=== PATIENT | male | born 1955 | race Caucasian/White ===

== ENCOUNTER 2020-01-06 16:29 | Inpatient (IN) | payer MEDICAID ==
[~2020-01-06] VITALS: Ht 180.3 cm; Wt 123.8 kg
[~2020-01-06 16:29] MED LIST: LIDOcaine 2% (20 mg/ml) 5ml cardiac syringe ONE; MAGNESIUM SULFATE 4 MEQ/ML (5gm/10ml) injection ONE; NORepinephrine 1 mg/ml inj IV ONE; albumin (human) 25% 100 ML IV solution IV ONE; aminocaproic acid 250 MG/1 ML inj. ONE; calcium chloride 100 MG/1 ML inj IV ONE; heparin 10,000 units/1 ML INJ ONE; methylPREDNISolone sod. succ. 500mg inj ONE; papaverine 30 mg/ml 2ml inj. ONE; sodium bicarbonate (8.4%) 1 mEq/ml syringe ONE
[2020-01-06 17:03] LABS: BASOPHILS % (AUTO) 0.1 % (0-1); EOSINOPHILS # (AUTO) 0.1 X10'3 (0-0.9); EOSINOPHILS % (AUTO) 0.8 % (0-6); HEMATOCRIT 41.2 % (42.0-52.0); HEMOGLOBIN 14.4 g/dl (14.0-17.9); LYMPHOCYTES # (AUTO) 1.3 X10'3 (1.1-4.8); LYMPHOCYTES % (AUTO) 11.5 % (21-51); MEAN CORPUSCULAR HEMOGLOBIN 30.8 PG (27.0-31.0); MEAN CORPUSCULAR HGB CONC 35.1 g/dL (33.0-36.5); MEAN CORPUSCULAR VOLUME 87.8 FL (78-98); MEAN PLATELET VOLUME 7.9 FL (7.4-10.4); MONOCYTES # (AUTO) 0.6 X10'3 (0-0.9); MONOCYTES % (AUTO) 5.5 % (2-12); NEUTROPHILS # (AUTO) 9.1 X10'3 (1.8-7.7); NEUTROPHILS % (AUTO) 82.1 % (42-75); PLATELET COUNT 267 X10'3 (140-440); RED BLOOD COUNT 4.69 X10'6 (4.70-6.10); RED CELL DISTRIBUTION WIDTH 13.5 % (11.5-14.5); WHITE BLOOD COUNT 11.1 X10'3 (4.5-11.0)
[2020-01-06 17:10] LABS: ALANINE AMINOTRANSFERASE 50 U/L (12-78); ALBUMIN 3.7 G/DL (3.4-5.0); ALKALINE PHOSPHATASE 94 IU/L (46-116); ANION GAP 13 (8-16); ASPARTATE AMINO TRANSFERASE 28 U/L (10-37); BILIRUBIN,TOTAL 0.3 MG/DL (0.1-1.0); BLOOD UREA NITROGEN 19 MG/DL (7-18); BUN/CREATININE RATIO 14.2 (5.4-32.0); CALCIUM 9.4 MG/DL (8.5-10.1); CHLORIDE 101 MMOL/L (99-107); CREATININE 1.34 MG/DL (0.60-1.10); GLUCOSE 352 MG/DL (70-104); POTASSIUM 4.3 MMOL/L (3.5-5.1); SODIUM 135 MMOL/L (135-145); TOTAL CARBON DIOXIDE 21.2 MMOL/L (24-32); TOTAL PROTEIN 7.3 G/DL (6.4-8.2); eGFR 54 ML/MIN
--- NOTE | 2020-01-06 17:23 | NUR ---
breaking primary RN, pt is in supine in bed, in no apparent distrss, watching staff walk by, VSS
[2020-01-06] MEDS ORDERED: heparin 10,000 units/1 ML INJ IV PRN ×2 (17:25→17:35)
[2020-01-06] MEDS ORDERED: heparin 10,000 units/1 ML INJ IV ONE ×3 (17:25→17:35)
[2020-01-06] MEDS ORDERED: normal saline 1000ML IV soln IVB ONE (17:30)
[2020-01-06] MEDS ORDERED: iohexol 350MG/ML 100ml bottle IV ONE (17:31)
[2020-01-06] MEDS ORDERED: ondansetron/PF 4mg/2ml inj IV PRN (17:35)
[2020-01-06] MEDS ORDERED: morphine 2 MG/ML inj. syringe IV PRN ×2 (17:35)
[2020-01-06] MEDS ORDERED: heparin 25,000 UNIT/250ml bag 250 ML IV SCH (17:35)
[2020-01-06] MEDS ORDERED: magnesium hydroxide 30ml (MOM) UD suspension PO PRN (17:35)
[2020-01-06] MEDS ORDERED: HYDROcodone/acetaminophen 10/325mg tab PO PRN (17:35)
[2020-01-06] MEDS ORDERED: mag hydrox/Alum hydrox/simeth 30ml oral suspension PO PRN (17:35)
[2020-01-06] MEDS ORDERED: acetaminophen 325mg tablet PO PRN ×2 (17:35)
[2020-01-06] MEDS ORDERED: HYDROcodone/acetaminophen 5mg/325mg tablet PO PRN (17:35)
[2020-01-06] MEDS: heparin 25,000 UNIT/250ml bag 250 ML IV SCH ×2 (17:48→23:50)
[2020-01-06] MEDS ORDERED: MULT-1085 PO (17:51)
[2020-01-06] MEDS ORDERED: METF-438 PO (17:51)
[2020-01-06] MEDS ORDERED: HYDR12.55 PO (17:51)
[2020-01-06] MEDS ORDERED: LISI-600 PO (17:51)
[2020-01-06 17:53] LABS: PARTIAL THROMBOPLASTIN TIME 28 SECONDS (22-32)
[2020-01-06 18:10] LABS: HEMOGLOBIN A1C 9.7 % (4.5-6.2)
[2020-01-06] MEDS: MESSAGE TO NURSING PO NR (18:30)
[2020-01-06] MEDS: metoprolol tartrate 25mg tablet PO SCH (18:59)
--- NOTE | 2020-01-06 19:00 | NUR ---
Patient in room PCU 3014. I have received report from "Cap" RN by telephone from ER and had the opportunity to ask questions and assume patient care. Patient came up shortly to unit with all belongings and stable, Lopressor was given before coming up for an SBP of 206.
--- NOTE | 2020-01-06 20:08 | NUR ---
PAGER ID: [phone] MESSAGE: [id number] Magdaleno Estevez: Critical Troponin 1.1, already on Heparin Drip, would you like anything else? Lia SAUL [id number]
--- NOTE | 2020-01-06 20:20 | NUR ---
PAGER ID: [phone] MESSAGE: [id number] Magdaleno Estevez: Is a diabetic and not on protocol, can I add it? Thanks. Lia SAUL [id number]
[2020-01-06 21:00] VITALS: BP 154/89
--- NOTE | 2020-01-06 23:27 | NUR ---
PAGER ID: [phone] MESSAGE: [id number] Magdaleno Estevez: Critical Troponin 4.40, would you like to order anything? Lia SAUL [id number]
--- NOTE | 2020-01-06 23:30 | NUR ---
New orders for Trop 4.4 MD Murray was called and gave no new orders and said to call MD Fonseca to see if he suggests anything different. MD Fonseca was contacted and gave orders to continue troponin Q8HR until peak and to order a Echocardiogram for AM. Patient is asymptomatic, no chest pain, no nausea/vomiting. Will continue to monitor patient.
--- NOTE | 2020-01-07 01:53 | NUR ---
PAGER ID: [phone] MESSAGE: [id number] Magdaleno Estevez: BP 165/93, no chest pain, there are no prn for high blood pressure. would you like to order anything? Lia SAUL [id number]
[2020-01-07 02:00] VITALS: BP 165/93
[2020-01-07] MEDS ORDERED: cloNIDine 0.1 mg tablet PO PRN (02:25)
[2020-01-07 05:58] LABS: BASOPHILS % (AUTO) 0.2 % (0-1); EOSINOPHILS # (AUTO) 0.2 X10'3 (0-0.9); EOSINOPHILS % (AUTO) 1.9 % (0-6); HEMATOCRIT 40.3 % (42.0-52.0); LYMPHOCYTES # (AUTO) 2.4 X10'3 (1.1-4.8); LYMPHOCYTES % (AUTO) 23.7 % (21-51); MEAN CORPUSCULAR HEMOGLOBIN 30.5 PG (27.0-31.0); MEAN CORPUSCULAR HGB CONC 34.7 g/dL (33.0-36.5); MEAN CORPUSCULAR VOLUME 87.9 FL (78-98); MEAN PLATELET VOLUME 7.9 FL (7.4-10.4); MONOCYTES # (AUTO) 0.8 X10'3 (0-0.9); MONOCYTES % (AUTO) 8.4 % (2-12); NEUTROPHILS # (AUTO) 6.6 X10'3 (1.8-7.7); NEUTROPHILS % (AUTO) 65.8 % (42-75); PLATELET COUNT 258 X10'3 (140-440); RED BLOOD COUNT 4.59 X10'6 (4.70-6.10); RED CELL DISTRIBUTION WIDTH 13.3 % (11.5-14.5)
[2020-01-07 06:09] LABS: ALBUMIN 3.5 G/DL (3.4-5.0); ANION GAP 8 (8-16); BLOOD UREA NITROGEN 15 MG/DL (7-18); BUN/CREATININE RATIO 14.3 (5.4-32.0); CALCIUM 9.2 MG/DL (8.5-10.1); CHLORIDE 104 MMOL/L (99-107); CHOL/HDL RATIO 4.6 (0.00-4.99); CHOLESTEROL 162 MG/DL (0-200); CREATININE 1.05 MG/DL (0.60-1.10); GLUCOSE 222 MG/DL (70-104); HDL CHOLESTEROL 35 MG/DL (35-60); LDL CHOLESTEROL 99 MG/DL (50-100); SODIUM 138 MMOL/L (135-145); TOTAL CARBON DIOXIDE 25.6 MMOL/L (24-32); TRIGLYCERIDES 165 MG/DL (20-135); eGFR 71 ML/MIN
--- NOTE | 2020-01-07 06:15 | NUR ---
Patient in room PCU 3014. I have received report from Lia SAUL and had the opportunity to ask questions and assume patient care. Patient awake on report and in no distress.
--- NOTE | 2020-01-07 06:22 | NUR ---
PAGER ID: [phone] MESSAGE: [id number] Magdaleno Estevez: Critical Trop of 8.15. orders? Lia SAUL [phone]
--- NOTE | 2020-01-07 06:25 | NUR ---
Critical value call back MD Murray responded with no new orders since patient is asymptomatic but to keep patient NPO this AM for possible cath lab procedure. Will pass on to day shift RN.
--- NOTE | 2020-01-07 06:25 | NUR ---
Patient in room PCU 3014. I have received report from DORYS Fitzgerald and had the opportunity to ask questions and assume patient care. Pt sitting up in bed, awake for bedside report.
[2020-01-07] MEDS ORDERED: tirofiban 5mg in NS 100mL 100 ML IV SCH (06:30)
--- NOTE | 2020-01-07 06:51 | NUR ---
Problems reprioritized. Patient report given, questions answered & plan of care reviewed with Monica SAUL.
[2020-01-07 07:00] VITALS: BP 155/88
[2020-01-07] MEDS ORDERED: dextrose 50%-water 50ml dispensing syringe IV PRN ×2 (08:20)
[2020-01-07] MEDS: atorvastatin 20mg tablet PO SCH (08:20)
[2020-01-07] MEDS ORDERED: dextrose ORAL solution 15 GM/59 ML bottle PO PRN ×2 (08:20)
[2020-01-07] MEDS ORDERED: glucagon, human recombinant 1mg kit SUBCUT PRN (08:20)
[2020-01-07] MEDS: aspirin 81mg tablet.DR PO SCH (08:20)
[2020-01-07] MEDS: metoprolol tartrate 25mg tablet PO SCH ×2 (08:21→19:30)
[2020-01-07] MEDS: MESSAGE TO NURSING PO NR (10:00)
[2020-01-07 11:00] VITALS: BP 149/85
[2020-01-07] MEDS: multivitamins, therapeutics tablet PO SCH (11:14)
[2020-01-07] MEDS: lisinopril 20mg tablet PO SCH (11:15)
[2020-01-07] MEDS: insulin Lispro (HumaLOG) vial - multi-dose SQ SCH ×2 (13:02→19:38)
--- NOTE | 2020-01-07 14:03 | NUR ---
DM consult: Pt with T2DM, current A1c is 9.7%. Attempted visit with pt at bedside however pt sleeping and did not wake with verbal cues. Written DM education and RD contact information left at bedside. Will remain available. Addendum: 01/07/20 at [address] Amended: Links added.
[2020-01-07] MEDS: heparin 25,000 UNIT/250ml bag 250 ML IV SCH ×2 (14:25→15:05)
[2020-01-07 15:00] VITALS: BP 129/76
[2020-01-07 18:00] VITALS: BP 112/65
--- NOTE | 2020-01-07 18:19 | NUR ---
Problems reprioritized. Patient report given, questions answered & plan of care reviewed with Anil SAUL. Patient resting in bed and in no distress.
--- NOTE | 2020-01-07 18:26 | NUR ---
Problems reprioritized. Patient report given, questions answered & plan of care reviewed with DORYS Ma.
[2020-01-07] MEDS: insulin glargine (Lantus) pen - multi-dose SQ SCH (21:44)
[2020-01-07 22:00] VITALS: BP 125/65
[2020-01-08] VITALS (14 sets, daily range): BP systolic 122–141; BP diastolic 63–80
[2020-01-08 03:53] LABS: BASOPHILS % (AUTO) 0.4 % (0-1); EOSINOPHILS # (AUTO) 0.2 X10'3 (0-0.9); EOSINOPHILS % (AUTO) 2.4 % (0-6); HEMATOCRIT 42.1 % (42.0-52.0); HEMOGLOBIN 14.5 g/dl (14.0-17.9); LYMPHOCYTES # (AUTO) 2.5 X10'3 (1.1-4.8); LYMPHOCYTES % (AUTO) 27.8 % (21-51); MEAN CORPUSCULAR HEMOGLOBIN 30.4 PG (27.0-31.0); MEAN CORPUSCULAR HGB CONC 34.3 g/dL (33.0-36.5); MEAN CORPUSCULAR VOLUME 88.6 FL (78-98); MONOCYTES # (AUTO) 0.8 X10'3 (0-0.9); MONOCYTES % (AUTO) 9.4 % (2-12); NEUTROPHILS # (AUTO) 5.4 X10'3 (1.8-7.7); PLATELET COUNT 266 X10'3 (140-440); RED BLOOD COUNT 4.76 X10'6 (4.70-6.10); RED CELL DISTRIBUTION WIDTH 13.6 % (11.5-14.5)
[2020-01-08 04:05] LABS: ALBUMIN 3.6 G/DL (3.4-5.0); ANION GAP 11 (8-16); BLOOD UREA NITROGEN 18 MG/DL (7-18); BUN/CREATININE RATIO 17.3 (5.4-32.0); CALCIUM 9.4 MG/DL (8.5-10.1); CHLORIDE 103 MMOL/L (99-107); CREATININE 1.04 MG/DL (0.60-1.10); GLUCOSE 144 MG/DL (70-104); POTASSIUM 3.5 MMOL/L (3.5-5.1); SODIUM 137 MMOL/L (135-145); TOTAL CARBON DIOXIDE 23.2 MMOL/L (24-32); eGFR 72 ML/MIN
--- NOTE | 2020-01-08 06:15 | NUR ---
Patient in room PCU 3014. I have received report from DORYS Ma and had the opportunity to ask questions and assume patient care. Patient asleep on report and in no apparent distress.
--- NOTE | 2020-01-08 06:23 | NUR ---
Patient in room PCU 3014. I have received report from DORYS Ma and had the opportunity to ask questions and assume patient care. Pt sleeping comfortably, RN informed that he has been prepped for Heart Cath scheduled for 01/07 @0730. Heparin gtt running at 1400.
[2020-01-08] MEDS ORDERED: LIDOcaine 1% (10mg/ml)w/preservative injection 20ml MDV ONE (06:51)
[2020-01-08] MEDS ORDERED: fentaNYL/PF 50MCG/1 ML 2ML syringe ONE (06:51)
[2020-01-08] MEDS ORDERED: midazolam 2 mg/2 ml injection ONE (06:51)
[2020-01-08] MEDS ORDERED: iohexol 350MG/ML 100ml bottle IV ONE ×2 (06:52→07:39)
[2020-01-08] MEDS ORDERED: nitroGLYCERIN-Tridil 50MG/D5W 250 ML IV ONE (07:17)
[2020-01-08] MEDS ORDERED: verapamil 2.5 mg/ml inj IV ONE (07:17)
[2020-01-08] MEDS ORDERED: heparin 1,000unit/ml 10ml vial 10 ML ONE (07:17)
[2020-01-08] MEDS ORDERED: iohexol 350 MG/ML 50ML vial IV ONE (07:40)
[2020-01-08] MEDS ORDERED: potassium Cl 2 mEq/ml inj IV ONE (08:00)
[2020-01-08] MEDS: metoprolol tartrate 25mg tablet PO SCH ×2 (08:57→19:07)
[2020-01-08] MEDS: multivitamins, therapeutics tablet PO SCH (08:57)
[2020-01-08] MEDS: aspirin 81mg tablet.DR PO SCH (08:57)
[2020-01-08] MEDS: atorvastatin 20mg tablet PO SCH (08:58)
[2020-01-08] MEDS: lisinopril 20mg tablet PO SCH (08:58)
[2020-01-08] MEDS: insulin Lispro (HumaLOG) vial - multi-dose SQ SCH ×3 (09:05→19:12)
[2020-01-08] MEDS ORDERED: MESSAGE TO NURSING PO ONE ×4 (09:25)
[2020-01-08] MEDS: MESSAGE TO NURSING PO NR (10:00)
--- NOTE | 2020-01-08 18:30 | NUR ---
Problems reprioritized. Patient report given, questions answered & plan of care reviewed with Monica SAUL. Addendum: 01/09/20 at 0214 by Stephen Salter RN Saad for 01/07 1800 - Patient in room [place] [address]. *I have received report from Monica SAUL and had the opportunity to ask questions and assume patient care.*
--- NOTE | 2020-01-08 18:34 | NUR ---
Problems reprioritized. Patient report given, questions answered & plan of care reviewed with Almas RN. Patient resting comftorably in bed at change of shift.
--- NOTE | 2020-01-08 18:36 | NUR ---
Problems reprioritized. Patient report given, questions answered & plan of care reviewed with DORYS Coburn. Pt sitting up in bed, watching tv. All pt needs met at this time.
--- NOTE | 2020-01-08 18:36 | NUR ---
[place] Medication Administration: For this medication-pass time frame, all medication were reviewed, dispensed, administered and documented per hospital policy by DORYS Hernandez.
--- NOTE | 2020-01-08 18:36 | NUR ---
[place] documentation: I have reviewed and agree with all interventions, assessments performed and documented by DORYS Hernandez.
[2020-01-08] MEDS: insulin glargine (Lantus) pen - multi-dose SQ SCH (21:22)
[2020-01-09 05:28] LABS: BASOPHILS % (AUTO) 0.4 % (0-1); EOSINOPHILS # (AUTO) 0.2 X10'3 (0-0.9); EOSINOPHILS % (AUTO) 2.7 % (0-6); HEMATOCRIT 38.2 % (42.0-52.0); HEMOGLOBIN 13.3 g/dl (14.0-17.9); LYMPHOCYTES # (AUTO) 2.7 X10'3 (1.1-4.8); LYMPHOCYTES % (AUTO) 28.3 % (21-51); MEAN CORPUSCULAR HGB CONC 34.9 g/dL (33.0-36.5); MEAN CORPUSCULAR VOLUME 88.7 FL (78-98); MEAN PLATELET VOLUME 7.7 FL (7.4-10.4); MONOCYTES % (AUTO) 10.2 % (2-12); NEUTROPHILS # (AUTO) 5.5 X10'3 (1.8-7.7); NEUTROPHILS % (AUTO) 58.4 % (42-75); PLATELET COUNT 257 X10'3 (140-440); RED CELL DISTRIBUTION WIDTH 13.8 % (11.5-14.5); WHITE BLOOD COUNT 9.4 X10'3 (4.5-11.0)
[2020-01-09 05:52] LABS: ALBUMIN 3.5 G/DL (3.4-5.0); ANION GAP 8 (8-16); BLOOD UREA NITROGEN 22 MG/DL (7-18); BUN/CREATININE RATIO 15.6 (5.4-32.0); CALCIUM 8.9 MG/DL (8.5-10.1); CHLORIDE 102 MMOL/L (99-107); CHOL/HDL RATIO 3.8 (0.00-4.99); CHOLESTEROL 123 MG/DL (0-200); CREATININE 1.41 MG/DL (0.60-1.10); GLUCOSE 120 MG/DL (70-104); HDL CHOLESTEROL 32 MG/DL (35-60); LDL CHOLESTEROL 68 MG/DL (50-100); POTASSIUM 3.4 MMOL/L (3.5-5.1); SODIUM 137 MMOL/L (135-145); TOTAL CARBON DIOXIDE 26.8 MMOL/L (24-32); TRIGLYCERIDES 128 MG/DL (20-135); eGFR 51 ML/MIN
--- NOTE | 2020-01-09 06:00 | NUR ---
Patient in room PCU 3014. I have received report from Almas SAUL and had the opportunity to ask questions and assume patient care.
--- NOTE | 2020-01-09 06:26 | NUR ---
Problems reprioritized. Patient report given, questions answered & plan of care reviewed with Day RN
[2020-01-09 07:02] VITALS: BP 113/75
[2020-01-09] MEDS: atorvastatin 20mg tablet PO SCH (07:46)
[2020-01-09] MEDS: aspirin 81mg tablet.DR PO SCH (07:46)
[2020-01-09] MEDS: multivitamins, therapeutics tablet PO SCH (07:46)
[2020-01-09] MEDS: lisinopril 20mg tablet PO SCH (07:46)
[2020-01-09] MEDS: metoprolol tartrate 25mg tablet PO SCH ×2 (07:46→20:00)
[2020-01-09] MEDS: insulin Lispro (HumaLOG) vial - multi-dose SQ SCH ×3 (09:25→21:26)
[2020-01-09] MEDS: nitroGLYCERIN 0.4mg SUBLingual tab SL PRN (10:38)
[2020-01-09 11:00] VITALS: BP 120/62
--- NOTE | 2020-01-09 13:49 | NUR ---
Paged Dr. Muhammad Re: Magdaleno Estevez RM [id number]. Pt K is 3.4, May be have replacement orders? Thank you Monica [id number].
--- NOTE | 2020-01-09 13:53 | NUR ---
Patient in room PCU 3014. I have received report from Karen SAUL and had the opportunity to ask questions and assume patient care.
--- NOTE | 2020-01-09 14:02 | NUR ---
Problems reprioritized. Patient report given, questions answered & plan of care reviewed with Monica Valiente RN.
[2020-01-09 15:00] VITALS: BP 140/81
--- NOTE | 2020-01-09 18:10 | NUR ---
Problems reprioritized. Patient report given, questions answered & plan of care reviewed with Almas RN.
[2020-01-09] MEDS ORDERED: potassium Cl 20 mEq SR tablet PO PRN ×2 (18:50)
[2020-01-09] MEDS ORDERED: potassium CL 10mEq/100ml bag 100 ML IV PRN (18:50)
[2020-01-09 19:00] VITALS: BP 107/68
[2020-01-09] MEDS: insulin glargine (Lantus) pen - multi-dose SQ SCH (21:25)
[2020-01-09 23:00] VITALS: BP 137/75
[2020-01-10 03:00] VITALS: BP 132/72
--- NOTE | 2020-01-10 05:26 | NUR ---
Patient in room U 3014B. I have received report from Monica SAUL and had the opportunity to ask questions and assume patient care.
[2020-01-10 06:00] VITALS: BP 135/77
--- NOTE | 2020-01-10 06:29 | NUR ---
Problems reprioritized. Patient report given, questions answered & plan of care reviewed with Day RN.
[2020-01-10 06:32] LABS: BASOPHILS % (AUTO) 0.3 % (0-1); EOSINOPHILS # (AUTO) 0.2 X10'3 (0-0.9); EOSINOPHILS % (AUTO) 1.9 % (0-6); HEMATOCRIT 38.3 % (42.0-52.0); HEMOGLOBIN 13.5 g/dl (14.0-17.9); LYMPHOCYTES # (AUTO) 2.1 X10'3 (1.1-4.8); LYMPHOCYTES % (AUTO) 24.7 % (21-51); MEAN CORPUSCULAR HGB CONC 35.2 g/dL (33.0-36.5); MEAN CORPUSCULAR VOLUME 88.2 FL (78-98); MONOCYTES # (AUTO) 0.8 X10'3 (0-0.9); MONOCYTES % (AUTO) 9.5 % (2-12); NEUTROPHILS # (AUTO) 5.3 X10'3 (1.8-7.7); NEUTROPHILS % (AUTO) 63.6 % (42-75); PLATELET COUNT 267 X10'3 (140-440); RED BLOOD COUNT 4.34 X10'6 (4.70-6.10); RED CELL DISTRIBUTION WIDTH 13.5 % (11.5-14.5); WHITE BLOOD COUNT 8.3 X10'3 (4.5-11.0)
[2020-01-10 06:37] LABS: ALBUMIN 3.4 G/DL (3.4-5.0); ANION GAP 8 (8-16); BLOOD UREA NITROGEN 18 MG/DL (7-18); BUN/CREATININE RATIO 17.1 (5.4-32.0); CHLORIDE 104 MMOL/L (99-107); CREATININE 1.05 MG/DL (0.60-1.10); GLUCOSE 171 MG/DL (70-104); POTASSIUM 4.1 MMOL/L (3.5-5.1); SODIUM 137 MMOL/L (135-145); TOTAL CARBON DIOXIDE 24.6 MMOL/L (24-32); eGFR 71 ML/MIN
[2020-01-10] MEDS: atorvastatin 20mg tablet PO SCH (08:58)
[2020-01-10] MEDS: aspirin 81mg tablet.DR PO SCH (08:58)
[2020-01-10] MEDS: multivitamins, therapeutics tablet PO SCH (08:58)
[2020-01-10] MEDS: metoprolol tartrate 25mg tablet PO SCH ×2 (09:00→20:17)
[2020-01-10] MEDS: lisinopril 20mg tablet PO SCH (09:00)
[2020-01-10] MEDS: insulin Lispro (HumaLOG) vial - multi-dose SQ SCH ×3 (09:44→19:15)
[2020-01-10 11:30] VITALS: BP 144/86
--- NOTE | 2020-01-10 12:00 | NUR ---
Initial: Pt presented with c/o CP and admit with acute NSTEMI. Pt s/p cardiac cath with severe multivessel CAD with preserved LVEF per MD notes, pending CABG. Pt on heart healthy CHO controlled diet documented with 75-100% PO intake meeting nutrient needs for IBW. LBM 01/06, d/w dietary to send power pudding with next meal to assist with bowel regularity. Pt would benefit from s/p cardiac nutrition therapy education once stable following CABG procedure. Will monitor need for additional DM education at that time. Recommendations: 1) Continue heart healthy CHO controlled diet 2) Monitor need for additional protein for satiety 3) Routine bowel care 4) Scaled weights per rx 5) S/p cardiac surgery nutrition therapy education once stable following CABG; monitor need for additional DM education Addendum: 01/10/20 at [address] Amended: Links added.
[2020-01-10 15:00] VITALS: BP 133/73
--- NOTE | 2020-01-10 15:51 | NUR ---
respiratory paged: 310: MARILEE - PFTs/ABGs needed. Surgery Sunday
[2020-01-10 18:00] VITALS: BP 133/72
--- NOTE | 2020-01-10 18:00 | NUR ---
Patient in room MED 310. I have received report from JUANITA SAUL and had the opportunity to ask questions and assume patient care.
[2020-01-10] MEDS: insulin glargine (Lantus) pen - multi-dose SQ SCH (21:02)
[2020-01-10 22:00] VITALS: BP_SYST 119; BP_SYST 133; BP_DIAS 72; BP_DIAS 85
[2020-01-10 22:15] LABS: CLARITY,URINE CLEAR (Clear); COLOR,URINE YELLOW (Yellow); GLUCOSE, URINE NEGATIVE (Neg); KETONES,URINE NEGATIVE (Neg); LEUKOCYTE ESTERASE ,URINE NEGATIVE (Neg); NITRITES, URINE NEGATIVE (Neg); OCCULT BLOOD,URINE NEGATIVE (Neg); PROTEIN,URINE NEGATIVE (Neg); UROBILINOGEN,URINE 0.2 E.U/dL (0.2-1.0)
[2020-01-10 22:18] LABS: UA COLLECTION TYPE VOIDED
[2020-01-11 02:00] VITALS: BP 120/75
[2020-01-11 05:50] LABS: BASOPHILS % (AUTO) 0.3 % (0-1); EOSINOPHILS # (AUTO) 0.2 X10'3 (0-0.9); EOSINOPHILS % (AUTO) 2.5 % (0-6); HEMOGLOBIN 13.5 g/dl (14.0-17.9); LYMPHOCYTES # (AUTO) 2.1 X10'3 (1.1-4.8); LYMPHOCYTES % (AUTO) 26.3 % (21-51); MEAN CORPUSCULAR HEMOGLOBIN 30.9 PG (27.0-31.0); MEAN CORPUSCULAR HGB CONC 34.6 g/dL (33.0-36.5); MEAN CORPUSCULAR VOLUME 89.3 FL (78-98); MEAN PLATELET VOLUME 7.8 FL (7.4-10.4); MONOCYTES # (AUTO) 0.8 X10'3 (0-0.9); MONOCYTES % (AUTO) 9.8 % (2-12); NEUTROPHILS # (AUTO) 4.9 X10'3 (1.8-7.7); NEUTROPHILS % (AUTO) 61.1 % (42-75); PLATELET COUNT 259 X10'3 (140-440); RED BLOOD COUNT 4.36 X10'6 (4.70-6.10); RED CELL DISTRIBUTION WIDTH 13.7 % (11.5-14.5); WHITE BLOOD COUNT 8.1 X10'3 (4.5-11.0)
[2020-01-11 06:00] VITALS: BP 123/78
[2020-01-11 06:00] LABS: ALBUMIN 3.4 G/DL (3.4-5.0); ANION GAP 9 (8-16); BLOOD UREA NITROGEN 17 MG/DL (7-18); BUN/CREATININE RATIO 16.3 (5.4-32.0); CHLORIDE 106 MMOL/L (99-107); CREATININE 1.04 MG/DL (0.60-1.10); GLUCOSE 137 MG/DL (70-104); POTASSIUM 4.1 MMOL/L (3.5-5.1); SODIUM 139 MMOL/L (135-145); TOTAL CARBON DIOXIDE 23.7 MMOL/L (24-32); eGFR 72 ML/MIN
--- NOTE | 2020-01-11 06:25 | NUR ---
Problems reprioritized. Patient report given, questions answered & plan of care reviewed with JOSEPH SAUL.
--- NOTE | 2020-01-11 06:30 | NUR ---
Patient in room MED 310. I have received report from Shaniqua SAUL and had the opportunity to ask questions and assume patient care.
[2020-01-11 08:22] LABS: MAGNESIUM 2.1 MG/DL (1.5-2.4)
[2020-01-11 08:36] LABS: ABG BASE EXCESS -4.3 mmol/L (-2.0-2.0); ABG HCO3 20.6 mmol/L (22.0-26.0); ABG OXYGEN SATURATION 95.5 % (94-97); ABG PCO2 (T) 37.8 mmHg (35.0-48.0); ABG PO2 (T) 78.2 mmHg (75.0-100.0); ALLEN'S TEST POSITIVE; FCOHb 0.4 % (0.0-3.9); FMetHb 0.1 % (0.0-1.5); TOTAL HEMOGLOBIN 14.2 G/dl (14.0-18.0)
[2020-01-11] MEDS: atorvastatin 20mg tablet PO SCH (08:41)
[2020-01-11] MEDS: aspirin 81mg tablet.DR PO SCH (08:41)
[2020-01-11] MEDS: multivitamins, therapeutics tablet PO SCH (08:42)
[2020-01-11] MEDS: metoprolol tartrate 25mg tablet PO SCH ×2 (08:42→19:52)
[2020-01-11] MEDS: lisinopril 20mg tablet PO SCH (08:42)
[2020-01-11] MEDS: insulin Lispro (HumaLOG) vial - multi-dose SQ SCH ×3 (09:09→18:56)
[2020-01-11] MEDS: nitroGLYCERIN 0.4mg SUBLingual tab SL PRN (09:11)
[2020-01-11] MEDS ORDERED: dextrose 50%-water 50ml dispensing syringe IV PRN (09:35)
[2020-01-11] MEDS ORDERED: MALTODEXTRIN/FRUCTOSE 0.68 KCAL/ML LIQUID 296ML BOTTLE PO ONE (09:35)
[2020-01-11] MEDS ORDERED: gabapentin 400mg capsule PO ONE (09:35)
[2020-01-11] MEDS ORDERED: vancomycin/NS 1 GM ADD-VANTAGE 250 ML IV ONE (09:35)
[2020-01-11] MEDS ORDERED: insulin glargine (Lantus) pen - multi-dose SQ PRN (09:35)
[2020-01-11] MEDS ORDERED: cefazolin/dext.iso 2gm/50ml 50 ML IV ONE (09:35)
[2020-01-11 11:00] VITALS: BP 132/72
[2020-01-11 14:00] VITALS: BP 135/65
[2020-01-11 18:00] VITALS: BP 155/86
--- NOTE | 2020-01-11 18:16 | NUR ---
Patient in room MED 310. I have received report from Silvia SAUL and had the opportunity to ask questions and assume patient care.
[2020-01-11] MEDS ORDERED: diphenhydrAMINE 25mg capsule PO PRN (19:15)
[2020-01-11] MEDS: mupirocin 2% nasal ointment 1gm UD NS SCH (19:52)
[2020-01-11 22:00] VITALS: BP 150/72
[2020-01-11] MEDS: insulin glargine (Lantus) pen - multi-dose SQ SCH (22:00)
[2020-01-12] VITALS (18 sets, daily range): BP systolic 103–140; BP diastolic 58–72
[2020-01-12 02:57] LABS: BASOPHILS % (AUTO) 0.2 % (0-1); EOSINOPHILS # (AUTO) 0.2 X10'3 (0-0.9); HEMATOCRIT 38.6 % (42.0-52.0); HEMOGLOBIN 13.3 g/dl (14.0-17.9); MEAN CORPUSCULAR HEMOGLOBIN 30.6 PG (27.0-31.0); MEAN CORPUSCULAR HGB CONC 34.5 g/dL (33.0-36.5); MEAN CORPUSCULAR VOLUME 88.7 FL (78-98); MEAN PLATELET VOLUME 7.6 FL (7.4-10.4); MONOCYTES # (AUTO) 0.9 X10'3 (0-0.9); MONOCYTES % (AUTO) 8.9 % (2-12); NEUTROPHILS # (AUTO) 6.6 X10'3 (1.8-7.7); NEUTROPHILS % (AUTO) 67.9 % (42-75); PLATELET COUNT 274 X10'3 (140-440); RED BLOOD COUNT 4.35 X10'6 (4.70-6.10); RED CELL DISTRIBUTION WIDTH 13.7 % (11.5-14.5); WHITE BLOOD COUNT 9.7 X10'3 (4.5-11.0)
[2020-01-12 03:12] LABS: ALANINE AMINOTRANSFERASE 56 U/L (12-78); ALBUMIN 3.5 G/DL (3.4-5.0); ALBUMIN/GLOBULIN RATIO 1.1 (1.1-1.5); ALKALINE PHOSPHATASE 72 IU/L (46-116); ANION GAP 9 (8-16); ASPARTATE AMINO TRANSFERASE 26 U/L (10-37); BILIRUBIN,TOTAL 0.4 MG/DL (0.1-1.0); BLOOD UREA NITROGEN 16 MG/DL (7-18); BUN/CREATININE RATIO 15.1 (5.4-32.0); CALCIUM 8.9 MG/DL (8.5-10.1); CHLORIDE 105 MMOL/L (99-107); CREATININE 1.06 MG/DL (0.60-1.10); GLUCOSE 108 MG/DL (70-104); MAGNESIUM 1.9 MG/DL (1.5-2.4); POTASSIUM 3.8 MMOL/L (3.5-5.1); SODIUM 138 MMOL/L (135-145); TOTAL CARBON DIOXIDE 24.2 MMOL/L (24-32); TOTAL PROTEIN 6.8 G/DL (6.4-8.2); eGFR 71 ML/MIN
[2020-01-12] MEDS ORDERED: ceFAZolin 1000mg inj ONE (05:14)
[2020-01-12] MEDS: mupirocin 2% nasal ointment 1gm UD NS SCH ×2 (05:21→20:29)
[2020-01-12] MEDS ORDERED: LORazepam 2 mg/ml vial IV ONE (06:00)
[2020-01-12] MEDS ORDERED: famotidine 20mg tablet PO ONE (06:00)
--- NOTE | 2020-01-12 06:04 | NUR ---
Problems reprioritized. Patient report given, questions answered & plan of care reviewed with JOSEPH SALU.
--- NOTE | 2020-01-12 06:15 | NUR ---
Patient in room MED 310. I have received report from Shaniqua SAUL and had the opportunity to ask questions and assume patient care.
--- NOTE | 2020-01-12 06:46 | NUR ---
Pt Vanco started, Ativan, given and left with OR nurses for CABG.
[2020-01-12] MEDS ORDERED: metoprolol tartrate 1mg/ml inj IV ONE (06:51)
[2020-01-12] MEDS ORDERED: protamine sulf. 10mg/ml inj. IV ONE (06:51)
[2020-01-12] MEDS ORDERED: niCARDipine in NS 40mg/200ml (0.2mg/ml) IVPB IV ONE (06:51)
[2020-01-12] MEDS ORDERED: sevoflurane 250ml liquid IH ONE (06:51)
[2020-01-12] MEDS ORDERED: nitroGLYCERIN in D5W 50mg/250ml (Tridil) infusion IV ONE (06:51)
[2020-01-12] MEDS ORDERED: aminocaproic acid 250 MG/1 ML inj. ONE (06:51)
[2020-01-12] MEDS ORDERED: rocuronium 10mg/ml inj IV ONE ×3 (06:51→06:59)
[2020-01-12] MEDS ORDERED: SUFENTANIL CITRATE 50 MCG/ML 2ml ampule IV ONE (06:54)
[2020-01-12] MEDS ORDERED: MIDAZolam 1mg/ml 10ml vial ONE (06:54)
[2020-01-12] MEDS ORDERED: propofol inj 20 ML IV ONE (06:56)
[2020-01-12] MEDS ORDERED: heparin 10,000 units/1 ML INJ IR ONE (07:55)
[2020-01-12] MEDS ORDERED: papaverine 30 mg/ml 2ml inj. IA ONE (07:56)
[2020-01-12 08:01] LABS: ABG BASE EXCESS VENOUS -5.2 mmol/L; ABG HCO3 VENOUS 21.5 mmol/L; ABG PCO2 VENOUS 46.1 mmHg; ABG PO2 VENOUS 43.9 mmHg; CL (ABG) 103 mmol/L (98-110); FCOHb VENOUS 0.5 %; FHHb VENOUS 21.4 %; FMetHb VENOUS 0.4 %; FO2Hb VENOUS 77.7 %; GLUCOSE (ABG) 233 mg/dl (70-140); IONIZED CA (ABG) 1.17 mmol/L (1.10-1.43); K (ABG) 4.2 mmol/L (3.5-5.0); TOTAL HEMOGLOBIN 12.7 G/dl (14.0-18.0)
[2020-01-12 08:30] LABS: ABG HCO3 VENOUS 23.7 mmol/L; ABG PCO2 VENOUS 49.1 mmHg; ABG PO2 VENOUS 33.9 mmHg; CL (ABG) 106 mmol/L (98-110); FCOHb VENOUS 0.8 %; FHHb VENOUS 34.2 %; FMetHb VENOUS 0.3 %; FO2Hb VENOUS 64.7 %; GLUCOSE (ABG) 232 mg/dl (70-140); IONIZED CA (ABG) 1.15 mmol/L (1.10-1.43); K (ABG) 4.5 mmol/L (3.5-5.0); TOTAL HEMOGLOBIN 12.5 G/dl (14.0-18.0)
[2020-01-12 09:01] LABS: ABG BASE EXCESS VENOUS -1.9 mmol/L; ABG HCO3 VENOUS 23.8 mmol/L; ABG PO2 VENOUS 48.1 mmHg; CL (ABG) 103 mmol/L (98-110); FCOHb VENOUS 0.5 %; FHHb VENOUS 15.6 %; FMetHb VENOUS 0.2 %; FO2Hb VENOUS 83.7 %; GLUCOSE (ABG) 199 mg/dl (70-140); IONIZED CA (ABG) 1.05 mmol/L (1.10-1.43); K (ABG) 5.2 mmol/L (3.5-5.0); TOTAL HEMOGLOBIN 10.4 G/dl (14.0-18.0)
[2020-01-12 09:10] LABS: ABG HCO3 24.7 mmol/L (22.0-26.0); ABG PCO2 45.7 mmHg (35.0-48.0); ABG PO2 394.6 mmHg (75.0-100.0); CL (ABG) 105 mmol/L (98-110); FCOHb 0.3 % (0.0-3.9); FMetHb 0.1 % (0.0-1.5); FO2Hb 98.6 % (94-97); GLUCOSE (ABG) 204 mg/dl (70-140); IONIZED CA (ABG) 1.05 mmol/L (1.10-1.43); K (ABG) 5.1 mmol/L (3.5-5.0); TOTAL HEMOGLOBIN 10.6 G/dl (14.0-18.0)
[2020-01-12 09:36] LABS: ABG BASE EXCESS -3.4 mmol/L (-2.0-2.0); ABG HCO3 22.4 mmol/L (22.0-26.0); ABG OXYGEN SATURATION 98.7 % (94-97); ABG PCO2 43.4 mmHg (35.0-48.0); ABG PO2 307.3 mmHg (75.0-100.0); CL (ABG) 101 mmol/L (98-110); FCOHb 0.3 % (0.0-3.9); FMetHb 0.5 % (0.0-1.5); FO2Hb 97.9 % (94-97); GLUCOSE (ABG) 188 mg/dl (70-140); IONIZED CA (ABG) 0.99 mmol/L (1.10-1.43); TOTAL HEMOGLOBIN 10.7 G/dl (14.0-18.0)
[2020-01-12 09:55] LABS: ABG BASE EXCESS -0.7 mmol/L (-2.0-2.0); ABG HCO3 23.7 mmol/L (22.0-26.0); ABG OXYGEN SATURATION 98.6 % (94-97); ABG PCO2 37.8 mmHg (35.0-48.0); ABG PO2 210.6 mmHg (75.0-100.0); CL (ABG) 104 mmol/L (98-110); FCOHb 0.3 % (0.0-3.9); FMetHb 0.6 % (0.0-1.5); FO2Hb 97.7 % (94-97); GLUCOSE (ABG) 178 mg/dl (70-140); K (ABG) 5.3 mmol/L (3.5-5.0); TOTAL HEMOGLOBIN 10.3 G/dl (14.0-18.0)
[2020-01-12 10:01] LABS: ACT @ 1.70 U 329 SEC (193-297); ACT @ 2.84 U 476 SEC (260-420); BASELINE ACT 153 SEC (101-148)
[2020-01-12] MEDS ORDERED: fentaNYL/PF 50MCG/1 ML 2ML syringe ONE (10:17)
[2020-01-12 10:30] LABS: ABG BASE EXCESS VENOUS 1.1 mmol/L; ABG HCO3 VENOUS 26.8 mmol/L; ABG PCO2 VENOUS 47.7 mmHg; ABG PO2 VENOUS 31.9 mmHg; CL (ABG) 107 mmol/L (98-110); FCOHb VENOUS 0.4 %; FHHb VENOUS 31.7 %; FMetHb VENOUS 0.7 %; FO2Hb VENOUS 67.2 %; GLUCOSE (ABG) 175 mg/dl (70-140); IONIZED CA (ABG) 1.23 mmol/L (1.10-1.43); K (ABG) 4.7 mmol/L (3.5-5.0); TOTAL HEMOGLOBIN 11.3 G/dl (14.0-18.0)
[2020-01-12] MEDS ORDERED: albumin (Human) 5% 250ml 250 ML IV PRN (11:00)
[2020-01-12] MEDS ORDERED: magnesium hydroxide 30ml (MOM) UD suspension PO PRN (11:00)
[2020-01-12] MEDS ORDERED: DOPamine 400mg/D5W 250ml 250 ML IV PRN (11:00)
[2020-01-12] MEDS ORDERED: acetaminophen 325mg tablet PO PRN ×2 (11:00)
[2020-01-12] MEDS ORDERED: pantoprazole 40 MG vial IV ONE (11:00)
[2020-01-12] MEDS ORDERED: nitroGLYCERIN-Tridil 50MG/D5W 250 ML IV PRN (11:00)
[2020-01-12] MEDS ORDERED: sodium phosphate inj. 30 MMOL in dextrose 5%-water 250 ML IV PRN (11:00)
[2020-01-12] MEDS ORDERED: morphine 2 MG/ML inj. syringe IV PRN (11:00)
[2020-01-12] MEDS ORDERED: normal saline 250ml IV soln 250 ML IV PRN (11:00)
[2020-01-12] MEDS ORDERED: Neutra Phos packet PO PRN (11:00)
[2020-01-12] MEDS ORDERED: sodium phosphate inj. 15 MMOL in dextrose 5%-water 250 ML IV PRN (11:00)
[2020-01-12] MEDS ORDERED: potassium Cl 20 mEq SR tablet PO PRN (11:00)
[2020-01-12] MEDS ORDERED: ondansetron/PF 4mg/2ml inj IV PRN (11:00)
[2020-01-12] MEDS ORDERED: Insulin Reg/NS 100units/100mL 100 ML IV SCH (11:00)
[2020-01-12] MEDS ORDERED: HYDROcodone/acetaminophen 10/325mg tab PO PRN (11:00)
[2020-01-12] MEDS ORDERED: niCARDipine-NS 40mg/200ml IVPB 200 ML IV PRN (11:00)
[2020-01-12] MEDS ORDERED: bisacodyl 10mg suppository rectal RC PRN (11:00)
[2020-01-12] MEDS ORDERED: morphine 4 MG/ML inj SYRINge IV PRN (11:00)
[2020-01-12] MEDS ORDERED: metoclopramide 5 mg/ml inj IV PRN (11:00)
[2020-01-12] MEDS ORDERED: dextrose 50%-water 50ml dispensing syringe IV PRN (11:00)
[2020-01-12] MEDS ORDERED: mineral oil 133ml enema RC PRN (11:00)
[2020-01-12] MEDS ORDERED: magnesium citrate 296ml oral solution PO PRN (11:00)
--- NOTE | 2020-01-12 11:15 | NUR ---
Received to room , accompanied by MD Ovalle, GUANAKO Sanchez and surgical crew. Placed on ventilator, to radiation monitor, arterial line and PA line pressure monitored. Chest tubes to suction at 20 cm. Mcneal cath to gravity drainage. Dressings are dry and intact. See assessment record. All vasoactive drugs are infusing via central line.
[2020-01-12 11:36] LABS: ABG BASE EXCESS -4.9 mmol/L (-2.0-2.0); ABG HCO3 20.5 mmol/L (22.0-26.0); ABG PCO2 (T) 39.5 mmHg (35.0-48.0); ABG PO2 (T) 97.7 mmHg (75.0-100.0); FCOHb 0.3 % (0.0-3.9); FMetHb 0.2 % (0.0-1.5); FO2Hb 96.5 % (94-97); PEEP 5 cm H2O; RESPIRATORY RATE 12 b/min; TIDAL VOLUME 650 mL; TOTAL HEMOGLOBIN 13.3 G/dl (14.0-18.0)
[2020-01-12] MEDS: sodium chloride 0.45% 1,000 ML IV SCH (11:40)
[2020-01-12 11:41] LABS: BASOPHILS % (AUTO) 0.1 % (0-1); EOSINOPHILS # (AUTO) 0.1 X10'3 (0-0.9); EOSINOPHILS % (AUTO) 0.7 % (0-6); HEMATOCRIT 36.9 % (42.0-52.0); HEMOGLOBIN 12.7 g/dl (14.0-17.9); LYMPHOCYTES # (AUTO) 1.2 X10'3 (1.1-4.8); LYMPHOCYTES % (AUTO) 8.5 % (21-51); MEAN CORPUSCULAR HEMOGLOBIN 30.4 PG (27.0-31.0); MEAN CORPUSCULAR HGB CONC 34.3 g/dL (33.0-36.5); MEAN CORPUSCULAR VOLUME 88.7 FL (78-98); MEAN PLATELET VOLUME 7.8 FL (7.4-10.4); MONOCYTES # (AUTO) 0.8 X10'3 (0-0.9); MONOCYTES % (AUTO) 5.4 % (2-12); NEUTROPHILS # (AUTO) 12.3 X10'3 (1.8-7.7); NEUTROPHILS % (AUTO) 85.3 % (42-75); PLATELET COUNT 215 X10'3 (140-440); RED BLOOD COUNT 4.16 X10'6 (4.70-6.10); RED CELL DISTRIBUTION WIDTH 13.6 % (11.5-14.5); WHITE BLOOD COUNT 14.4 X10'3 (4.5-11.0)
[2020-01-12] MEDS: Insulin Reg/NS 100units/100mL 100 ML IV SCH ×2 (11:52→11:59)
[2020-01-12] MEDS: multivitamins, therapeutics tablet PO SCH (11:53)
[2020-01-12 11:54] LABS: PARTIAL THROMBOPLASTIN TIME 31 SECONDS (22-32)
[2020-01-12 11:56] LABS: ALANINE AMINOTRANSFERASE 42 U/L (12-78); ALBUMIN 2.9 G/DL (3.4-5.0); ALBUMIN/GLOBULIN RATIO 1.2 (1.1-1.5); ALKALINE PHOSPHATASE 53 IU/L (46-116); ANION GAP 8 (8-16); ASPARTATE AMINO TRANSFERASE 35 U/L (10-37); BILIRUBIN,TOTAL 0.5 MG/DL (0.1-1.0); BLOOD UREA NITROGEN 13 MG/DL (7-18); CALCIUM 9.4 MG/DL (8.5-10.1); CHLORIDE 107 MMOL/L (99-107); GLUCOSE 159 MG/DL (70-104); MAGNESIUM 2.3 MG/DL (1.5-2.4); PHOSPHORUS 1.5 MG/DL (2.3-4.5); POTASSIUM 4.6 MMOL/L (3.5-5.1); SODIUM 139 MMOL/L (135-145); TOTAL CARBON DIOXIDE 24.2 MMOL/L (24-32); TOTAL PROTEIN 5.4 G/DL (6.4-8.2); eGFR 75 ML/MIN
[2020-01-12] MEDS: gabapentin 300mg capsule PO SCH ×2 (12:02→20:30)
[2020-01-12] MEDS: magnesium 2GM in 50ml NS 50 ML IV PRN ×2 (12:08→17:47)
--- NOTE | 2020-01-12 15:28 | NUR ---
Pt. remains sleepy but doing well on CPAP mode on ventilator with VSS, normal CT and urine output. Magnesium was replaced. Phosphorus is currently being replaced now. K+ was WNL post op. Gtts all are off except for insulin and 1/2 NS.
[2020-01-12] MEDS: ceFAZolin 1GM/D5W- ADD-VANTAGE 50 ML IV SCH (16:11)
[2020-01-12 16:45] LABS: ABG BASE EXCESS -5.2 mmol/L (-2.0-2.0); ABG HCO3 19.3 mmol/L (22.0-26.0); ABG OXYGEN SATURATION 95.8 % (94-97); ABG PCO2 (T) 35.1 mmHg (35.0-48.0); ABG PO2 (T) 88.5 mmHg (75.0-100.0); FCOHb 0.3 % (0.0-3.9); FMetHb 0.1 % (0.0-1.5); FO2Hb 95.4 % (94-97); PATIENT TEMPERATURE 37.5; PEEP 5 cm H2O; TOTAL HEMOGLOBIN 13.2 G/dl (14.0-18.0)
[2020-01-12 17:26] LABS: BASOPHILS % (AUTO) 0 % (0-1); EOSINOPHILS % (AUTO) 0 % (0-6); HEMATOCRIT 36.9 % (42.0-52.0); HEMOGLOBIN 12.8 g/dl (14.0-17.9); LYMPHOCYTES # (AUTO) 0.7 X10'3 (1.1-4.8); MEAN CORPUSCULAR HEMOGLOBIN 30.6 PG (27.0-31.0); MEAN CORPUSCULAR HGB CONC 34.7 g/dL (33.0-36.5); MEAN CORPUSCULAR VOLUME 88.3 FL (78-98); MEAN PLATELET VOLUME 7.9 FL (7.4-10.4); MONOCYTES # (AUTO) 0.5 X10'3 (0-0.9); MONOCYTES % (AUTO) 2.9 % (2-12); NEUTROPHILS # (AUTO) 15.9 X10'3 (1.8-7.7); NEUTROPHILS % (AUTO) 93.1 % (42-75); PLATELET COUNT 287 X10'3 (140-440); RED BLOOD COUNT 4.18 X10'6 (4.70-6.10); RED CELL DISTRIBUTION WIDTH 13.5 % (11.5-14.5); WHITE BLOOD COUNT 17.1 X10'3 (4.5-11.0)
[2020-01-12 17:32] LABS: ALBUMIN 3.3 G/DL (3.4-5.0); ANION GAP 7 (8-16); BLOOD UREA NITROGEN 14 MG/DL (7-18); BUN/CREATININE RATIO 12.3 (5.4-32.0); CALCIUM 8.8 MG/DL (8.5-10.1); CHLORIDE 109 MMOL/L (99-107); CREATININE 1.14 MG/DL (0.60-1.10); GLUCOSE 184 MG/DL (70-104); MAGNESIUM 2.2 MG/DL (1.5-2.4); PHOSPHORUS 3.3 MG/DL (2.3-4.5); POTASSIUM 4.4 MMOL/L (3.5-5.1); SODIUM 140 MMOL/L (135-145); eGFR 65 ML/MIN
--- NOTE | 2020-01-12 17:36 | NUR ---
Pt. extubated at 1655 after passing weaning parameters and having a satisfactory ABG. Pt. doing well on 3L nc. SP02 97% Pt. declined pain meds at this time. VSS.
[2020-01-12] MEDS: potassium Cl 20mEq/100mL bag 100 ML IV PRN ×2 (17:46→18:59)
--- NOTE | 2020-01-12 18:08 | NUR ---
Problems reprioritized. Patient report given, questions answered & plan of care reviewed with Tatiana SAUL.
--- NOTE | 2020-01-12 18:10 | NUR ---
Patient in room ICU 2044. I have received report from JAYA SAUL and had the opportunity to ask questions and assume patient care.
[2020-01-12] MEDS: vancomycin/NS 1 GM ADD-VANTAGE 250 ML IV SCH (20:29)
[2020-01-12] MEDS: sennosides/docusate sodium tablet PO SCH (20:30)
[2020-01-12] MEDS: HYDROcodone/acetaminophen 10/325mg tab PO PRN (20:45)
--- NOTE | 2020-01-12 22:25 | NUR ---
Pt is sleepy but doing well. [place] given for pain which helped per the pt. Hemodynamics within desired ranges.
[2020-01-13] VITALS (23 sets, daily range): BP systolic 106–170; BP diastolic 46–89
[2020-01-13] MEDS: ceFAZolin 1GM/D5W- ADD-VANTAGE 50 ML IV SCH ×3 (00:03→15:11)
[2020-01-13] MEDS: HYDROcodone/acetaminophen 10/325mg tab PO PRN ×3 (00:44→12:49)
[2020-01-13] MEDS: Insulin Reg/NS 100units/100mL 100 ML IV SCH (01:29)
[2020-01-13 03:28] LABS: BASOPHILS % (AUTO) 0.1 % (0-1); EOSINOPHILS % (AUTO) 0 % (0-6); HEMATOCRIT 34.3 % (42.0-52.0); LYMPHOCYTES # (AUTO) 0.9 X10'3 (1.1-4.8); LYMPHOCYTES % (AUTO) 4.1 % (21-51); MEAN CORPUSCULAR HEMOGLOBIN 31.3 PG (27.0-31.0); MEAN CORPUSCULAR HGB CONC 34.9 g/dL (33.0-36.5); MEAN CORPUSCULAR VOLUME 89.5 FL (78-98); MEAN PLATELET VOLUME 7.9 FL (7.4-10.4); MONOCYTES # (AUTO) 1.6 X10'3 (0-0.9); MONOCYTES % (AUTO) 7.6 % (2-12); NEUTROPHILS # (AUTO) 18.4 X10'3 (1.8-7.7); NEUTROPHILS % (AUTO) 88.2 % (42-75); PLATELET COUNT 236 X10'3 (140-440); RED BLOOD COUNT 3.83 X10'6 (4.70-6.10); RED CELL DISTRIBUTION WIDTH 13.3 % (11.5-14.5); WHITE BLOOD COUNT 20.9 X10'3 (4.5-11.0)
--- NOTE | 2020-01-13 03:41 | NUR ---
Nitro drip started per orders to decrease the pt's bp which had been trending up over the night. When the nitro drip was started the pt's SBP was maintaining in the 160'smmHg. As ordered titrating the nitro to maintain a SBP less than 140mmHg. Pt is currently sleeping but he wake easily and interacts appropriately. His pain is well controlled with the norco. Will continue to monitor.
[2020-01-13 03:44] LABS: ALANINE AMINOTRANSFERASE 37 U/L (12-78); ALBUMIN 3.2 G/DL (3.4-5.0); ALBUMIN/GLOBULIN RATIO 1.1 (1.1-1.5); ALKALINE PHOSPHATASE 56 IU/L (46-116); ANION GAP 8 (8-16); ASPARTATE AMINO TRANSFERASE 36 U/L (10-37); BILIRUBIN,TOTAL 0.4 MG/DL (0.1-1.0); BLOOD UREA NITROGEN 13 MG/DL (7-18); CALCIUM 8.1 MG/DL (8.5-10.1); CHLORIDE 108 MMOL/L (99-107); CREATININE 1.08 MG/DL (0.60-1.10); GLUCOSE 143 MG/DL (70-104); PHOSPHORUS 3.4 MG/DL (2.3-4.5); POTASSIUM 4.7 MMOL/L (3.5-5.1); SODIUM 138 MMOL/L (135-145); TOTAL CARBON DIOXIDE 22.3 MMOL/L (24-32); eGFR 69 ML/MIN
[2020-01-13 03:45] LABS: PARTIAL THROMBOPLASTIN TIME 29 SECONDS (22-32)
[2020-01-13] MEDS: magnesium 4gm in 100ml NS 100 ML IV PRN (03:54)
--- NOTE | 2020-01-13 05:16 | NUR ---
GOT PT UP TO THE BEDSIDE TO DANGLE HIS FEET FOR 5 MINS AND HE TOLERATED IT WELL. THEN ASSISTED PT TO STAND FOR 4 MINS WHICH HE ALSO TOLERATED WELL. HE DID BECOME A "LITTLE DIZZY" WHEN SIDE STEPPING UP TO THE HEAD OF THE BED BUT HE WAS ABLE TO REMAIN SOLIDLY ON HIS FEET. GOT PT BACK TO BED AND NOW HE IS RESTING COMFORTABLY.
--- NOTE | 2020-01-13 06:13 | NUR ---
Problems reprioritized. Patient report given, questions answered & plan of care reviewed with JAYA SAUL & MIC RN.
--- NOTE | 2020-01-13 06:15 | NUR ---
Patient in room ICU 2044. I have received report from Tatiana Ibarra RN and had the opportunity to ask questions and assume patient care. Patient in bed sleeping at this time. No distress noted. Will continue to monitor.
[2020-01-13] MEDS: multivitamins, therapeutics tablet PO SCH (07:16)
[2020-01-13] MEDS: gabapentin 300mg capsule PO SCH ×3 (07:17→20:58)
[2020-01-13] MEDS: atorvastatin 10mg tablet PO SCH (07:17)
[2020-01-13] MEDS: aspirin 325mg tablet, delayed-release (Ecotrin) PO SCH (07:17)
[2020-01-13] MEDS: vancomycin/NS 1 GM ADD-VANTAGE 250 ML IV SCH ×2 (07:17→21:10)
[2020-01-13] MEDS: mupirocin 2% nasal ointment 1gm UD NS SCH ×2 (07:17→21:10)
[2020-01-13] MEDS: sennosides/docusate sodium tablet PO SCH ×2 (07:17→20:57)
[2020-01-13] MEDS: pantoprazole 40mg Tablet.DR PO SCH (07:17)
[2020-01-13] MEDS: insulin glargine (Lantus) pen - multi-dose SQ PRN (07:28)
[2020-01-13] MEDS: insulin Lispro (HumaLOG) vial - multi-dose SQ SCH ×4 (07:30→20:44)
[2020-01-13] MEDS ORDERED: metoprolol tartrate 12.5mg (1/2 tablet) PO SCH (08:00)
[2020-01-13] MEDS ORDERED: metoprolol tartrate 12.5mg (1/2 tablet) PO ONE (08:10)
--- NOTE | 2020-01-13 09:30 | NUR ---
Right wrist arterial line and swan removed per MD order. Patient tolerated well. Dressings clean, dry and intact.
[2020-01-13] MEDS ORDERED: furosemide 40mg/4ml inj IV ONE (15:10)
[2020-01-13] MEDS ORDERED: metoprolol tartrate 25mg tablet PO SCH ×2 (20:00)
[2020-01-13] MEDS ORDERED: lisinopril 10 MG tablet PO SCH ×2 (21:00)
[2020-01-14] VITALS (23 sets, daily range): BP systolic 94–143; BP diastolic 49–72
[2020-01-14 02:49] LABS: BASOPHILS % (AUTO) 0 % (0-1); EOSINOPHILS % (AUTO) 0 % (0-6); HEMOGLOBIN 11.1 g/dl (14.0-17.9); LYMPHOCYTES # (AUTO) 1.1 X10'3 (1.1-4.8); MEAN CORPUSCULAR HEMOGLOBIN 31.3 PG (27.0-31.0); MEAN CORPUSCULAR HGB CONC 34.7 g/dL (33.0-36.5); MEAN PLATELET VOLUME 8.2 FL (7.4-10.4); MONOCYTES # (AUTO) 1.8 X10'3 (0-0.9); MONOCYTES % (AUTO) 9.4 % (2-12); NEUTROPHILS # (AUTO) 16.1 X10'3 (1.8-7.7); NEUTROPHILS % (AUTO) 84.6 % (42-75); PLATELET COUNT 232 X10'3 (140-440); RED BLOOD COUNT 3.56 X10'6 (4.70-6.10); RED CELL DISTRIBUTION WIDTH 13.7 % (11.5-14.5)
[2020-01-14 03:07] LABS: ALBUMIN 2.9 G/DL (3.4-5.0); ANION GAP 8 (8-16); BLOOD UREA NITROGEN 21 MG/DL (7-18); BUN/CREATININE RATIO 17.9 (5.4-32.0); CALCIUM 8.4 MG/DL (8.5-10.1); CHLORIDE 100 MMOL/L (99-107); CREATININE 1.17 MG/DL (0.60-1.10); GLUCOSE 241 MG/DL (70-104); MAGNESIUM 2.2 MG/DL (1.5-2.4); POTASSIUM 4.9 MMOL/L (3.5-5.1); SODIUM 133 MMOL/L (135-145); eGFR 63 ML/MIN
[2020-01-14] MEDS: Insulin Reg/NS 100units/100mL 100 ML IV SCH (04:11)
--- NOTE | 2020-01-14 06:30 | NUR ---
Patient in room ICU 2044. I have received report from Jamir SAUL and had the opportunity to ask questions and assume patient care.
[2020-01-14] MEDS: ceFAZolin 1GM/D5W- ADD-VANTAGE 50 ML IV SCH (06:35)
--- NOTE | 2020-01-14 06:36 | NUR ---
Problems reprioritized. Patient report given, questions answered & plan of care reviewed with Graciela SAUL.
--- NOTE | 2020-01-14 06:55 | NUR ---
Patient in room ICU 2044. I have received report from Jamir SAUL and had the opportunity to ask questions and assume patient care. Patient was resting comfortably during report.
[2020-01-14] MEDS: sennosides/docusate sodium tablet PO SCH ×2 (08:45→19:54)
[2020-01-14] MEDS: mupirocin 2% nasal ointment 1gm UD NS SCH (08:45)
[2020-01-14] MEDS: pantoprazole 40mg Tablet.DR PO SCH (08:46)
[2020-01-14] MEDS: atorvastatin 10mg tablet PO SCH (08:46)
[2020-01-14] MEDS: aspirin 325mg tablet, delayed-release (Ecotrin) PO SCH (08:46)
[2020-01-14] MEDS: gabapentin 300mg capsule PO SCH (08:46)
[2020-01-14] MEDS: multivitamins, therapeutics tablet PO SCH (08:46)
[2020-01-14] MEDS: HYDROcodone/acetaminophen 10/325mg tab PO PRN ×3 (08:48→23:32)
[2020-01-14] MEDS: insulin Lispro (HumaLOG) vial - multi-dose SQ SCH ×3 (08:54→19:58)
[2020-01-14] MEDS ORDERED: metoprolol tartrate 25mg tablet PO ONE (11:10)
[2020-01-14] MEDS: insulin glargine (Lantus) pen - multi-dose SQ PRN (13:28)
--- NOTE | 2020-01-14 17:00 | NUR ---
Per Dr. Vasquez almonte for patient's BP to be in low 90s, aware of BP lowering but states is focused on lowering heart rate. States he would like patient to receive 75 mg Lopressor tonight and hold Zestril. Will continue to monitor.
[2020-01-14] MEDS: sodium chloride 0.45% 1,000 ML IV SCH (17:48)
--- NOTE | 2020-01-14 18:30 | NUR ---
Patient in room ICU 2044. I have received report from DORYS Owens and had the opportunity to ask questions and assume patient care.
--- NOTE | 2020-01-14 18:38 | NUR ---
Problems reprioritized. Patient report given, questions answered & plan of care reviewed with Hui SAUL.
--- NOTE | 2020-01-14 18:38 | NUR ---
Observed and agree with care provided by Yissel SAUL.
[2020-01-14] MEDS: metoprolol tartrate 25mg tablet PO SCH (19:56)
[2020-01-14] MEDS ORDERED: metoprolol tartrate 25mg tablet PO SCH (20:00)
[2020-01-14 20:39] LABS: ALANINE AMINOTRANSFERASE 30 U/L (12-78); ALBUMIN 2.7 G/DL (3.4-5.0); ALBUMIN/GLOBULIN RATIO 0.9 (1.1-1.5); ALKALINE PHOSPHATASE 66 IU/L (46-116); ANION GAP 7 (8-16); ASPARTATE AMINO TRANSFERASE 21 U/L (10-37); BILIRUBIN,TOTAL 0.2 MG/DL (0.1-1.0); BLOOD UREA NITROGEN 26 MG/DL (7-18); BUN/CREATININE RATIO 23.6 (5.4-32.0); CALCIUM 8.2 MG/DL (8.5-10.1); CHLORIDE 102 MMOL/L (99-107); GLUCOSE 203 MG/DL (70-104); MAGNESIUM 1.9 MG/DL (1.5-2.4); PHOSPHORUS 3.4 MG/DL (2.3-4.5); POTASSIUM 4.3 MMOL/L (3.5-5.1); SODIUM 134 MMOL/L (135-145); TOTAL CARBON DIOXIDE 25.3 MMOL/L (24-32); TOTAL PROTEIN 5.8 G/DL (6.4-8.2); eGFR 68 ML/MIN
[2020-01-14] MEDS ORDERED: lisinopril 10 MG tablet PO SCH (21:00)
[2020-01-14] MEDS: potassium Cl 20mEq/100mL bag 100 ML IV PRN ×2 (21:20→22:44)
[2020-01-15] VITALS (16 sets, daily range): BP systolic 110–143; BP diastolic 50–77
[2020-01-15] MEDS: magnesium 4gm in 100ml NS 100 ML IV PRN (00:17)
[2020-01-15 05:25] LABS: BASOPHILS % (AUTO) 0.2 % (0-1); EOSINOPHILS # (AUTO) 0.1 X10'3 (0-0.9); EOSINOPHILS % (AUTO) 0.5 % (0-6); HEMATOCRIT 31.1 % (42.0-52.0); HEMOGLOBIN 10.9 g/dl (14.0-17.9); LYMPHOCYTES # (AUTO) 1.9 X10'3 (1.1-4.8); LYMPHOCYTES % (AUTO) 11.8 % (21-51); MEAN CORPUSCULAR HEMOGLOBIN 31.3 PG (27.0-31.0); MEAN CORPUSCULAR HGB CONC 34.9 g/dL (33.0-36.5); MEAN CORPUSCULAR VOLUME 89.7 FL (78-98); MEAN PLATELET VOLUME 7.9 FL (7.4-10.4); MONOCYTES # (AUTO) 1.7 X10'3 (0-0.9); MONOCYTES % (AUTO) 10.9 % (2-12); NEUTROPHILS # (AUTO) 12.2 X10'3 (1.8-7.7); NEUTROPHILS % (AUTO) 76.6 % (42-75); PLATELET COUNT 259 X10'3 (140-440); RED BLOOD COUNT 3.47 X10'6 (4.70-6.10); RED CELL DISTRIBUTION WIDTH 13.5 % (11.5-14.5)
[2020-01-15 05:39] LABS: ALBUMIN 2.8 G/DL (3.4-5.0); ANION GAP 8 (8-16); BLOOD UREA NITROGEN 32 MG/DL (7-18); BUN/CREATININE RATIO 26.9 (5.4-32.0); CALCIUM 8.5 MG/DL (8.5-10.1); CHLORIDE 100 MMOL/L (99-107); CREATININE 1.19 MG/DL (0.60-1.10); GLUCOSE 176 MG/DL (70-104); PHOSPHORUS 3.1 MG/DL (2.3-4.5); POTASSIUM 4.8 MMOL/L (3.5-5.1); SODIUM 132 MMOL/L (135-145); TOTAL CARBON DIOXIDE 24.1 MMOL/L (24-32); eGFR 62 ML/MIN
--- NOTE | 2020-01-15 06:28 | NUR ---
Problems reprioritized. Patient report given, questions answered & plan of care reviewed with DORYS Mora.
[2020-01-15] MEDS: sennosides/docusate sodium tablet PO SCH ×2 (07:21→21:17)
[2020-01-15] MEDS: aspirin 325mg tablet, delayed-release (Ecotrin) PO SCH (07:21)
[2020-01-15] MEDS: atorvastatin 10mg tablet PO SCH (07:21)
[2020-01-15] MEDS: multivitamins, therapeutics tablet PO SCH (07:21)
[2020-01-15] MEDS: pantoprazole 40mg Tablet.DR PO SCH (07:21)
[2020-01-15] MEDS: metoprolol tartrate 25mg tablet PO SCH ×2 (07:22→21:17)
[2020-01-15] MEDS: Insulin Reg/NS 100units/100mL 100 ML IV SCH (08:20)
[2020-01-15] MEDS: insulin Lispro (HumaLOG) vial - multi-dose SQ SCH ×2 (08:39→14:10)
[2020-01-15] MEDS: insulin glargine (Lantus) pen - multi-dose SQ SCH (09:39)
[2020-01-15] MEDS ORDERED: magnesium 2GM in 50ml NS 50 ML IV PRN (10:10)
[2020-01-15] MEDS ORDERED: potassium Cl 20mEq/100mL bag 100 ML IV PRN (10:10)
[2020-01-15] MEDS ORDERED: magnesium 4gm in 100ml NS 100 ML IV PRN (10:10)
[2020-01-15] MEDS ORDERED: potassium Cl 20 mEq SR tablet PO PRN (10:10)
--- NOTE | 2020-01-15 14:39 | NUR ---
Reassessment: Eating well, 75-100% PO. Met at bedside and given written post cardiac surgery diet education and written heart healthy education handout with verbal review of both. Pt verbalized understanding. No c/o at this time. Recommendations: 1) Continue heart healthy CHO controlled diet 2) Monitor need for additional protein for satiety 3) Routine bowel care 4) Scaled weights per rx Addendum: 01/15/20 at [address] Amended: Links added.
--- NOTE | 2020-01-15 14:48 | NUR ---
PAGER ID: [phone] MESSAGE: GALI: RM 308 Escobar Rawls: DVT PTT 124. On hold for 2 hours now per protocol. DORYS Chau Ext [phone] Addendum: 01/15/20 at 1448 by Isac Dyer RN wrong patient
--- NOTE | 2020-01-15 18:04 | NUR ---
Patient in room MED 307. I have received report from DORYS Nunes and had the opportunity to ask questions and assume patient care. Addendum: 01/15/20 at 1805 by Isac Dyer RN wrong note
--- NOTE | 2020-01-15 18:04 | NUR ---
RM 308 Vandana Bridges: Heparin currently not running as of now. We lost one IV and need 2 in. We are working on getting a second IV in him. DORYS Chau Ext [phone]
--- NOTE | 2020-01-15 18:25 | NUR ---
Patient in room MED 307. I have received report from Isac-DORYS, and had the opportunity to ask questions and assume patient care.
--- NOTE | 2020-01-15 19:00 | NUR ---
Patient start his dinner. Alert, oriented x4. Not at any distress right now.
[2020-01-15] MEDS: magnesium Cl slow-release 64mg tablet PO SCH (20:00)
[2020-01-15] MEDS: potassium Cl 20 mEq SR tablet PO SCH (20:00)
--- NOTE | 2020-01-15 20:34 | NUR ---
Late dinner tray. Unable to cover for dinner coverage blood sugar. Will recheck the blood sugar at 2100.
[2020-01-16 02:00] VITALS: BP 144/99
--- NOTE | 2020-01-16 06:25 | NUR ---
Problems reprioritized. Patient report given Pat-RN, questions answered & plan of care reviewed with .
[2020-01-16 06:30] VITALS: BP 143/80
[2020-01-16 06:33] LABS: BASOPHILS % (AUTO) 0.2 % (0-1); EOSINOPHILS # (AUTO) 0.2 X10'3 (0-0.9); HEMATOCRIT 31.3 % (42.0-52.0); LYMPHOCYTES # (AUTO) 1.6 X10'3 (1.1-4.8); LYMPHOCYTES % (AUTO) 15.4 % (21-51); MEAN CORPUSCULAR HEMOGLOBIN 31.2 PG (27.0-31.0); MEAN CORPUSCULAR VOLUME 89.2 FL (78-98); MEAN PLATELET VOLUME 7.8 FL (7.4-10.4); MONOCYTES # (AUTO) 1.1 X10'3 (0-0.9); MONOCYTES % (AUTO) 10.7 % (2-12); NEUTROPHILS # (AUTO) 7.4 X10'3 (1.8-7.7); NEUTROPHILS % (AUTO) 71.7 % (42-75); PLATELET COUNT 322 X10'3 (140-440); RED BLOOD COUNT 3.51 X10'6 (4.70-6.10); RED CELL DISTRIBUTION WIDTH 13.3 % (11.5-14.5); WHITE BLOOD COUNT 10.4 X10'3 (4.5-11.0)
[2020-01-16 06:40] LABS: ALBUMIN 2.8 G/DL (3.4-5.0); ANION GAP 7 (8-16); BLOOD UREA NITROGEN 22 MG/DL (7-18); BUN/CREATININE RATIO 19.5 (5.4-32.0); CALCIUM 8.8 MG/DL (8.5-10.1); CHLORIDE 101 MMOL/L (99-107); CREATININE 1.13 MG/DL (0.60-1.10); GLUCOSE 144 MG/DL (70-104); POTASSIUM 4.2 MMOL/L (3.5-5.1); SODIUM 136 MMOL/L (135-145); TOTAL CARBON DIOXIDE 27.8 MMOL/L (24-32); eGFR 66 ML/MIN
[2020-01-16] MEDS: insulin glargine (Lantus) pen - multi-dose SQ SCH (08:00)
[2020-01-16] MEDS: magnesium Cl slow-release 64mg tablet PO SCH (08:00)
[2020-01-16] MEDS: potassium Cl 20 mEq SR tablet PO SCH (08:00)
[2020-01-16] MEDS: insulin Lispro (HumaLOG) vial - multi-dose SQ SCH ×2 (09:33→13:29)
[2020-01-16] MEDS: sennosides/docusate sodium tablet PO SCH (09:35)
[2020-01-16] MEDS: atorvastatin 10mg tablet PO SCH (09:35)
[2020-01-16] MEDS: aspirin 325mg tablet, delayed-release (Ecotrin) PO SCH (09:37)
[2020-01-16] MEDS: multivitamins, therapeutics tablet PO SCH (09:38)
[2020-01-16 11:36] VITALS: BP 135/75
[2020-01-16] MEDS: pantoprazole 40mg Tablet.DR PO SCH (13:30)
--- NOTE | 2020-01-16 14:00 | NUR ---
REPORT PHONED TO CHARU PETERSEN AT [facility] DC'D WITH CATH INTACT.DISCHARGED WITH ALL BELONGINGS TO [facility]. Addendum: 01/16/20 at 1426 by Jeannine Solo RN Amended: Links added.
[2020-01-16] MEDS ORDERED: metoprolol tartrate 25mg tablet PO SCH (20:00)
== END 2020-01-16 14:05 | DRG 165 ==
LOC: ER 16:29 → ED HOLD 17:35 → PCU 3S 19:04 → MED 3N 01-10 10:33 → ICU 2S 01-12 11:05 → MED 3N 01-15 11:15
PROVIDERS: ADMIT Internal Medicine; ATTEND Internal Medicine
PROC: B32T1ZZ Computerized Tomography (CT Scan) of Left Pulmonary Artery using Low Osmolar Contrast (ICD-10-PCS; 2020-01-06)
PROC: B32S1ZZ Computerized Tomography (CT Scan) of Right Pulmonary Artery using Low Osmolar Contrast (ICD-10-PCS; 2020-01-06)
PROC: 4A023N7 Measurement of Cardiac Sampling and Pressure, Left Heart, Percutaneous Approach (ICD-10-PCS; 2020-01-08)
PROC: B2111ZZ Fluoroscopy of Multiple Coronary Arteries using Low Osmolar Contrast (ICD-10-PCS; 2020-01-08)
PROC: 021209W Bypass Coronary Artery, Three Arteries from Aorta with Autologous Venous Tissue, Open Approach (ICD-10-PCS; 2020-01-12)
PROC: 06BY4ZZ Excision of Lower Vein, Percutaneous Endoscopic Approach (ICD-10-PCS; 2020-01-12)
PROC: B24BZZ4 Ultrasonography of Heart with Aorta, Transesophageal (ICD-10-PCS; 2020-01-12)
PROC: 0210099 Bypass Coronary Artery, One Artery from Left Internal Mammary with Autologous Venous Tissue, Open Approach (ICD-10-PCS; principal; 2020-01-12 06:51)
DX: I21.4 Non-ST elevation (NSTEMI) myocardial infarction (principal); I25.110 Atherosclerotic heart disease of native coronary artery with unstable angina pectoris; I10 Essential (primary) hypertension; E11.9 Type 2 diabetes mellitus without complications; Z20.828 Contact with and (suspected) exposure to other viral communicable diseases; Z82.49 Family history of ischemic heart disease and other diseases of the circulatory system; Z87.891 Personal history of nicotine dependence; I25.2 Old myocardial infarction; Z90.79 Acquired absence of other genital organ(s); Z88.8 Allergy status to other drugs, medicaments and biological substances
CPT/HCPCS: 0232T; 36415; 36600; 71045; 71046; 80048; 80053; 80061; 81003; 82330; 82435; 82803; 82947; 82948; 83036; 83735; 83880; 84100; 84132; 84295; 84484; 85018; 85025; 85347; 85384; 85610; 85730; 86885; 86900; 86901; 86920; 87081; 87635; 93005; 93306; 93312; 93325; 93458; 93880; 93970; 94002; 94010; 94667; 94760; 97110; 97116; 97162; 97530; 99152; 99153; 99285; A4618; A4620; A5120; A6258; A6402; A6449; A7000; A7048; C1713; C1751; C1769; C1894; C9113; G0378; J0690; J1644; J1815; J1940; J2001; J2060; J2150; J2250; J2270; J2405; J2440; J2704; J2720; J2930; J3010; J3370; J3475; J3480; J3490; J7030; J7040; J7050; J7060; J7120; P9045; P9047; Q0163; Q9967